=== PATIENT | female | born 1960 | race Caucasian/White ===

== ENCOUNTER 2017-12-25 12:45 | Emergency (ER) | payer MEDICAID ==
[~2017-12-25] VITALS: Ht 162.6 cm; Wt 56.7 kg
--- NOTE | 2017-12-25 12:50 | NUR ---
PRESENTS TO ER C/O PAIN AND SWELLING TO THE BACK OF THE BASE OF THE NECK X 1 WEEK. DENIES TRAUMA/INJURY. A/OX 4. BREATHING EVEN AND UNLABORED. NO SOB, NAD, VITALS STABLE. SAFETY AND COMFORT MEASURES IN PLACE. AWAITING MD ORDERS.
--- NOTE | 2017-12-25 13:41 | NUR ---
PATIENT TAKEN TO RADIOLOGY VIA WHEELCHAIR.
--- NOTE | 2017-12-25 13:51 | NUR ---
PATIENT RETURNED FROM CT IN STABLE CONDITION.
[2017-12-25] MEDS ORDERED: KETOROLAC TROMETHAMINE INJ 60 MG/2 ML VIAL IM STA (14:19)
[2017-12-25] MEDS ORDERED: KETOROLAC TROMETHAMINE INJ 30 MG/ML VIAL ONE (14:23)
--- NOTE | 2017-12-25 15:05 | NUR ---
US TECH AT BEDSIDE.
[2017-12-25 16:01] VITALS: BP 145/82
--- NOTE | 2017-12-25 16:03 | NUR ---
Patient discharged to home in stable condition. Written and verbal after care instructions given. Patient verbalizes understanding of instruction.
== END 2017-12-25 16:01 | disposition home or self-care (01) ==
LOC: ER 12:51
DX: S13.9XXA Sprain of joints and ligaments of unspecified parts of neck, initial encounter (principal); X58.XXXA Exposure to other specified factors, initial encounter; Y93.89 Activity, other specified; Y92.89 Other specified places as the place of occurrence of the external cause; Y99.8 Other external cause status
CPT/HCPCS: 72040; 76882; 96372; 99284; A4606; J1885; Z7610

== ENCOUNTER 2018-12-25 16:04 | Emergency (ER) | payer MEDICAID, OTHER ==
[~2018-12-25] VITALS: Ht 152.4 cm; Wt 59.9 kg
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
--- NOTE | 2018-12-25 16:33 | NUR ---
DR OSULLIVAN AT BEDSIDE FOR EVAL.
--- NOTE | 2018-12-25 16:45 | NUR ---
PT TO RADIOLOGY FOR CHEST CT SCAN VIA [facility].
--- NOTE | 2018-12-25 17:53 | NUR ---
Patient discharged to home in stable condition. Written and verbal after care instructions given. Patient verbalizes understanding of instruction.
[2018-12-25 17:54] VITALS: BP 136/77
== END 2018-12-25 17:56 | disposition home or self-care (01) ==
LOC: ER 16:11
DX: S20.212A Contusion of left front wall of thorax, initial encounter (principal); S20.211A Contusion of right front wall of thorax, initial encounter; W18.09XA Striking against other object with subsequent fall, initial encounter; Y93.K1 Activity, walking an animal; Y92.89 Other specified places as the place of occurrence of the external cause; Y99.8 Other external cause status
CPT/HCPCS: 71250-TC

== ENCOUNTER 2019-09-02 14:49 | Emergency (ER) | payer OTHER ==
[~2019-09-02] VITALS: Ht 162.6 cm; Wt 63.5 kg
[2019-09-02 14:55] VITALS: BP 152/94
== END 2019-09-02 17:28 | disposition home or self-care (01) ==
LOC: ER 14:50
DX: M79.671 Pain in right foot (principal); Z60.2 Problems related to living alone; W22.8XXA Striking against or struck by other objects, initial encounter; Y93.89 Activity, other specified; Y92.89 Other specified places as the place of occurrence of the external cause; Y99.8 Other external cause status
CPT/HCPCS: 73630-TC

== ENCOUNTER 2020-09-13 17:38 | Emergency (ER) | payer OTHER ==
[~2020-09-13] VITALS: Ht 162.6 cm; Wt 59.0 kg
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
[2020-09-13 18:29] LABS: CALCIUM, SERUM 9.3 mg/dL (8.5-10.1); CREATININE 1.1 mg/dL (0.6-1.3); POTASSIUM 4.2 mmol/L (3.5-5.1)
--- NOTE | 2020-09-13 19:11 | NUR ---
Patient discharged to home in stable condition. Written and verbal after care instructions given. Patient verbalizes understanding of instruction. Pt ambulatory with a steady gait
[2020-09-13 19:12] VITALS: BP 138/89
== END 2020-09-13 19:19 | disposition home or self-care (01) ==
LOC: ER 17:51
DX: G89.29 Other chronic pain (principal); R20.0 Anesthesia of skin; Z88.6 Allergy status to analgesic agent; Z88.1 Allergy status to other antibiotic agents
CPT/HCPCS: 36415; 71045-TC; 80048-TC

== ENCOUNTER → 2020-10-09 | Emergency (ER) | payer OTHER ==
[~2020-10-09] VITALS: Ht 162.6 cm; Wt 65.8 kg
[~2020-10-09] MED LIST: CEPH500C2 PO; HYDROCODONE/APAP 5/325MG TABLET ONE; HYDROCODONE/APAP 5/325MG TABLET PO ONE; LIDOCAINE 0.5% HCL 50 ML VIAL ONE; LIDOCAINE HCL/MPF 1% 30 ML VIAL IJ ONE; TDAP [DIPH/PERTUSSIS/TET] 0.5 ML VIAL IM ONE
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
[2020-10-09 18:31] VITALS: BP 132/85
--- NOTE | 2020-10-09 18:33 | NUR ---
Patient alert and oriented x 4. Patient discharged to home in stable condition. Written and verbal after care instructions given. Patient verbalizes understanding of instruction. Patient left the hospital in stable condition.
--- NOTE | 2020-10-09 18:39 | NUR ---
Patient discharged to home in stable condition. Written and verbal after care instructions given. Patient verbalizes understanding of instruction. The patient leaving the hospital in stable condition.
== END | disposition home or self-care (01) ==
LOC: ER 17:20
DX: S60.351A Superficial foreign body of right thumb, initial encounter (principal); Z88.1 Allergy status to other antibiotic agents; Z88.6 Allergy status to analgesic agent; W45.8XXA Other foreign body or object entering through skin, initial encounter; Y93.E8 Activity, other personal hygiene; Y92.098 Other place in other non-institutional residence as the place of occurrence of the external cause; Y99.8 Other external cause status
CPT/HCPCS: 10120; 90471; 90715; 99284; J3490

== ENCOUNTER 2020-11-26 08:55 | Emergency (ER) | payer OTHER ==
[~2020-11-26] VITALS: Ht 162.6 cm; Wt 63.5 kg
[~2020-11-26 08:55] MED LIST changes: -HYDROCODONE/APAP 5/325MG TABLET ONE; -HYDROCODONE/APAP 5/325MG TABLET PO ONE; -LIDOCAINE 0.5% HCL 50 ML VIAL ONE; -LIDOCAINE HCL/MPF 1% 30 ML VIAL IJ ONE; -TDAP [DIPH/PERTUSSIS/TET] 0.5 ML VIAL IM ONE
--- NOTE | 2020-11-26 09:30 | NUR ---
FROM HOME BIB HER FOR C/O RIGHT LOWER JAWLINE SWELLING AND RATES PAIN 10/10. NO BLEEDING IN MOUTH NOTED. WILL CONTINUE TO MONITOR THE PATIENT.
[2020-11-26] MEDS ORDERED: OXYC15TA2 PO ×2 (10:26→10:27)
[2020-11-26] MEDS ORDERED: SULF1TAB48 PO (10:26)
[2020-11-26] MEDS ORDERED: CLIN300C12 PO (10:26)
[2020-11-26] MEDS ORDERED: CLINDAMYCIN 900 MG/6 ML VIAL IM ONE (10:30)
[2020-11-26] MEDS ORDERED: KETOROLAC TROMETHAMINE INJ 60 MG/2 ML VIAL IM ONE (10:30)
[2020-11-26] MEDS ORDERED: HYDROMORPHONE 1 MG/1 ML DISP.SYRIN IM ONE (10:30)
[2020-11-26] MEDS ORDERED: KETOROLAC TROMETHAMINE INJ 30 MG/ML VIAL ONE (10:56)
[2020-11-26] MEDS ORDERED: CLINDAMYCIN 900 MG/6 ML VIAL ONE (10:56)
[2020-11-26] MEDS ORDERED: HYDROMORPHONE 1 MG/1 ML DISP.SYRIN ONE (10:57)
--- NOTE | 2020-11-26 11:05 | NUR ---
Patient discharged to home in stable condition. Written and verbal after care instructions given. Patient verbalizes understanding of instruction. The patient left ER in stable condition.
[2020-11-26 11:06] VITALS: BP 141/98
== END 2020-11-26 11:07 | disposition home or self-care (01) ==
LOC: ER 08:59
DX: K04.7 Periapical abscess without sinus (principal); Z88.1 Allergy status to other antibiotic agents; Z88.6 Allergy status to analgesic agent; Z79.899 Other long term (current) drug therapy
CPT/HCPCS: 96372 ×2; 99284; J1170; J1885; J3490

== ENCOUNTER 2020-12-06 15:42 | Emergency (ER) | payer OTHER ==
[~2020-12-06] VITALS: Ht 162.6 cm; Wt 61.2 kg
[~2020-12-06 15:42] MED LIST changes: +CLIN300C12 PO; +OXYC15TA2 PO; +SULF1TAB48 PO
[2020-12-06] MEDS ORDERED: KETOROLAC TROMETHAMINE INJ 60 MG/2 ML VIAL IM ONE (17:00)
[2020-12-06] MEDS ORDERED: LORAZEPAM 1 MG TABLET PO ONE (17:00)
[2020-12-06] MEDS ORDERED: LORAZEPAM 1 MG TABLET ONE (17:02)
[2020-12-06] MEDS ORDERED: KETOROLAC TROMETHAMINE INJ 30 MG/ML VIAL ONE (17:02)
--- NOTE | 2020-12-06 17:09 | NUR ---
scheduled pain medicatoon administered , x-ray for test in 15 mins.
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
[2020-12-06] MEDS ORDERED: NAPR-1164 PO (19:28)
--- NOTE | 2020-12-06 19:45 | NUR ---
Patient discharged to home in stable condition. left without ACI
[2020-12-06 19:46] VITALS: BP 121/70
== END 2020-12-06 19:46 | disposition home or self-care (01) ==
LOC: ER 15:42
DX: S60.051A Contusion of right little finger without damage to nail, initial encounter (principal); S40.011A Contusion of right shoulder, initial encounter; S50.01XA Contusion of right elbow, initial encounter; S00.83XA Contusion of other part of head, initial encounter; S00.03XA Contusion of scalp, initial encounter; M54.2 Cervicalgia; G56.21 Lesion of ulnar nerve, right upper limb; G57.71 Causalgia of right lower limb; F11.20 Opioid dependence, uncomplicated; J98.11 Atelectasis; F10.10 Alcohol abuse, uncomplicated; F17.200 Nicotine dependence, unspecified, uncomplicated; Y90.9 Presence of alcohol in blood, level not specified; Z79.899 Other long term (current) drug therapy; Z59.0 Homelessness; Z88.1 Allergy status to other antibiotic agents; Z88.5 Allergy status to narcotic agent; Y04.8XXA Assault by other bodily force, initial encounter; Y93.89 Activity, other specified; Y92.89 Other specified places as the place of occurrence of the external cause; Y99.8 Other external cause status
CPT/HCPCS: 71045; 72050; 72125; 73080; 73130; 96372; 99284; J1885

== ENCOUNTER 2020-12-30 15:19 | Emergency (ER) | payer OTHER ==
[~2020-12-30] VITALS: Ht 160 cm; Wt 74.4 kg
[~2020-12-30 15:19] MED LIST changes: +NAPR-1164 PO
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
[2020-12-30] MEDS ORDERED: KETOROLAC TROMETHAMINE 15 MG/ML VIAL ONE (16:04)
[2020-12-30] MEDS: KETOROLAC TROMETHAMINE INJ 30 MG/ML VIAL IV ONE (16:15)
[2020-12-30 16:25] LABS: BASOPHILS % (AUTO) 0.6 % (0.0-2.0); EOSINOPHILS % (AUTO) 0.4 % (0.0-6.0); HEMATOCRIT 36 % (33-45); HEMOGLOBIN 11.8 g/dL (11.5-14.8); LYMPHOCYTES # (AUTO) 1.3 /CMM (0.8-4.8); LYMPHOCYTES % (AUTO) 20.8 % (20.0-44.0); MEAN CORPUSCULAR HGB CONC 33 g/dl (31.0-36.0); MEAN CORPUSCULAR VOLUME 97 fL (82-100); MONOCYTES # (AUTO) 0.4 /CMM (0.1-1.30); MONOCYTES % (AUTO) 6.2 % (2.0-12.0); NEUTROPHILS # (AUTO) 4.6 /CMM (1.8-8.9); PLATELET COUNT (AUTO) 321 /CMM (150-450); WHITE BLOOD COUNT (AUTO) 6.4 K/uL (4.3-11.0)
[2020-12-30 16:33] LABS: ALCOHOL, BLOOD < 3 mg/dL (0-0); CALCIUM, SERUM 9.3 mg/dL (8.5-10.1); CARBON DIOXIDE 26 mmol/L (21-32); CHLORIDE 105 mmol/L (98-107); CREATININE 0.8 mg/dL (0.6-1.3); GLUCOSE 124 mg/dL (74-106); POTASSIUM 4.3 mmol/L (3.5-5.1); SODIUM SERUM 141 mmol/L (136-145); UREA NITROGEN, BLOOD 11 mg/dL (7-18)
[2020-12-30] MEDS ORDERED: NAPR-1192 PO (17:22)
--- NOTE | 2020-12-30 18:01 | NUR ---
The patient alert and oriented x4. Patient discharged to home in stable condition. Written and verbal after care instructions given. Patient verbalized understanding but refused to sign discharge papers.
[2020-12-30 18:02] VITALS: BP 131/88
== END 2020-12-30 17:51 | disposition home or self-care (01) ==
LOC: ER 15:21
DX: S93.491A Sprain of other ligament of right ankle, initial encounter (principal); M25.521 Pain in right elbow; Z88.6 Allergy status to analgesic agent; Z88.1 Allergy status to other antibiotic agents; Z79.899 Other long term (current) drug therapy; Y08.89XA Assault by other specified means, initial encounter; Y93.89 Activity, other specified; Y92.89 Other specified places as the place of occurrence of the external cause; Y99.8 Other external cause status
CPT/HCPCS: 36415; 71045; 73080; 73610; 73630; 80048; 80320; 85025; 96374; 99284; J1885; G0480

== ENCOUNTER 2021-01-20 14:54 | Emergency (ER) | payer OTHER ==
[~2021-01-20] VITALS: Ht 162.6 cm; Wt 59.0 kg
[~2021-01-20 14:54] MED LIST changes: +NAPR-1192 PO
--- NOTE | 2021-01-20 15:06 | NUR ---
patient came in to the er c/o right hand pain. On room air, breathing evenly and unlabored. Kept comfortable, will continue to monitor accordingly.
--- NOTE | 2021-01-20 16:36 | NUR ---
Patient discharged to home in stable condition. Written and verbal after care instructions given. Patient verbalizes understanding of instruction.
[2021-01-20 16:37] VITALS: BP 134/76
== END 2021-01-20 16:37 | disposition home or self-care (01) ==
LOC: ER 14:58
DX: M79.641 Pain in right hand (principal); Z88.1 Allergy status to other antibiotic agents; Z88.6 Allergy status to analgesic agent; Z79.899 Other long term (current) drug therapy; W22.8XXA Striking against or struck by other objects, initial encounter; Y93.89 Activity, other specified; Y92.89 Other specified places as the place of occurrence of the external cause; Y99.8 Other external cause status
CPT/HCPCS: 73130-TC

== ENCOUNTER 2021-03-16 12:32 | Emergency (ER) | payer OTHER ==
[~2021-03-16] VITALS: Ht 162.6 cm; Wt 61.2 kg
[2021-03-16 13:00] VITALS: BP 134/80
--- NOTE | 2021-03-16 13:16 | NUR ---
The patient bibs stating"I fell down on uneven surface couple days ago. Knee abrasion/bruise". Rates nemo knee pain 2. Will continue to monitor the patient.
[2021-03-16] MEDS ORDERED: ACETAMINOPHEN ES 500 MG TABLET PO ONE (13:30)
[2021-03-16] MEDS ORDERED: IV NS 0.9% 1,000 ML BAG IV ONE (13:30)
[2021-03-16] MEDS ORDERED: ACETAMINOPHEN ES 500 MG TABLET ONE (13:39)
[2021-03-16 13:44] LABS: BASOPHILS % (AUTO) 0.7 % (0.0-2.0); EOSINOPHILS % (AUTO) 1.6 % (0.0-6.0); HEMATOCRIT 37 % (33-45); HEMOGLOBIN 12.2 g/dL (11.5-14.8); LYMPHOCYTES # (AUTO) 1.9 K/uL (0.8-4.8); LYMPHOCYTES % (AUTO) 29.5 % (20.0-44.0); MEAN CORPUSCULAR HGB CONC 33 g/dl (31.0-36.0); MEAN CORPUSCULAR VOLUME 97 fL (82-100); MONOCYTES # (AUTO) 0.6 K/uL (0.1-1.30); MONOCYTES % (AUTO) 9.8 % (2.0-12.0); NEUTROPHILS # (AUTO) 3.8 K/uL (1.8-8.9); NEUTROPHILS % (AUTO) 58.4 % (43.0-81.0); PLATELET COUNT (AUTO) 347 K/uL (150-450); RED BLOOD CELL COUNT(AUTO) 3.76 MIL/uL (4.0-5.2); WHITE BLOOD COUNT (AUTO) 6.6 K/uL (4.3-11.0)
[2021-03-16 13:58] LABS: CALCIUM, SERUM 8.8 mg/dL (8.5-10.1); CARBON DIOXIDE 26 mmol/L (21-32); CHLORIDE 106 mmol/L (98-107); GLUCOSE 103 mg/dL (74-106); POTASSIUM 4.3 mmol/L (3.5-5.1); SODIUM SERUM 140 mmol/L (136-145); UREA NITROGEN, BLOOD 13 mg/dL (7-18)
[2021-03-16] MEDS ORDERED: HYDROCODONE/APAP 5/325MG TABLET PO ONE (14:30)
[2021-03-16] MEDS ORDERED: DIAZEPAM 5 MG TABLET PO ONE (14:30)
[2021-03-16] MEDS ORDERED: DIAZEPAM 5 MG TABLET ONE (14:45)
[2021-03-16] MEDS ORDERED: HYDROCODONE/APAP 5/325MG TABLET ONE (14:45)
[2021-03-16] MEDS ORDERED: NALO4SPR NS (15:00)
[2021-03-16] MEDS ORDERED: HYDR-3972 PO (15:00)
[2021-03-16] MEDS ORDERED: DIAZ5TAB PO (15:00)
--- NOTE | 2021-03-16 15:20 | NUR ---
No obvious distress. MD Dr Lynn in to update pt w/plan of care and results - Patient discharged to home in stable condition. Written and verbal after care instructions given. Patient verbalizes understanding of instruction.
--- NOTE | 2021-03-16 15:21 | NUR ---
Patient discharged to home in stable condition. Written and verbal after care instructions given. Patient verbalizes understanding of instruction.
== END 2021-03-16 15:22 | disposition home or self-care (01) ==
LOC: ER 13:54
DX: S13.8XXA Sprain of joints and ligaments of other parts of neck, initial encounter (principal); G89.29 Other chronic pain; R51.9 Headache, unspecified; F10.10 Alcohol abuse, uncomplicated; F17.200 Nicotine dependence, unspecified, uncomplicated; Y90.9 Presence of alcohol in blood, level not specified; Z88.1 Allergy status to other antibiotic agents; Z88.5 Allergy status to narcotic agent; Z79.899 Other long term (current) drug therapy; W01.198A Fall on same level from slipping, tripping and stumbling with subsequent striking against other object, initial encounter; Y93.89 Activity, other specified; Y92.89 Other specified places as the place of occurrence of the external cause; Y99.8 Other external cause status
CPT/HCPCS: 36415; 70450; 71045; 72125; 80048; 82962; 84484; 85025; 93005; 96360; 99285; J7030

== ENCOUNTER 2021-07-06 17:42 | Emergency (ER) | payer OTHER ==
[~2021-07-06] VITALS: Ht 162.6 cm; Wt 65.8 kg
[~2021-07-06 17:42] MED LIST changes: +DIAZ5TAB PO; +HYDR-3972 PO; +NALO4SPR NS
--- NOTE | 2021-07-06 17:48 | NUR ---
TO ER BED 16, [id number], C/O VAGINAL BLEEDING "BRIGHT RED" X 7 HOURS. AAOX3, BREATHING EVEN AND NON LABORED, PROVIDED BLANKET FOR COMFORT, AWAITING MD MCKENNA
--- NOTE | 2021-07-06 18:23 | NUR ---
US AT BEDSIDE
[2021-07-06] MEDS: LORAZEPAM 1 MG TABLET PO ONE (18:32)
[2021-07-06] MEDS ORDERED: LORAZEPAM 0.5 MG TABLET ONE (18:32)
--- NOTE | 2021-07-06 18:32 | NUR ---
RECEIVED AN ORDER FROM DR ZIMMER: ATIVAN 0.5 MG PO ONCE. THE ORDER IS READ BACK, VERIFIED. NOTED AND CARRIED OUT.
[2021-07-06 19:04] LABS: BASOPHILS # (AUTO) 0.3 K/uL (0.0-0.2); BASOPHILS % (AUTO) 2.9 % (0.0-2.0); EOSINOPHILS % (AUTO) 2.1 % (0.0-6.0); HEMATOCRIT 38 % (33-45); HEMOGLOBIN 12.6 g/dL (11.5-14.8); LYMPHOCYTES # (AUTO) 1.6 K/uL (0.8-4.8); LYMPHOCYTES % (AUTO) 14.1 % (20.0-44.0); MEAN CORPUSCULAR HGB CONC 33 g/dl (31.0-36.0); MEAN CORPUSCULAR VOLUME 98 fL (82-100); MONOCYTES # (AUTO) 0.6 K/uL (0.1-1.30); MONOCYTES % (AUTO) 5.3 % (2.0-12.0); NEUTROPHILS # (AUTO) 8.7 K/uL (1.8-8.9); NEUTROPHILS % (AUTO) 75.6 % (43.0-81.0); PLATELET COUNT (AUTO) 336 K/uL (150-450); RED BLOOD CELL COUNT(AUTO) 3.86 MIL/uL (4.0-5.2); WHITE BLOOD COUNT (AUTO) 11.5 K/uL (4.3-11.0)
[2021-07-06 19:17] LABS: CALCIUM, SERUM 8.9 mg/dL (8.5-10.1); CREATININE 0.9 mg/dL (0.6-1.3); POTASSIUM 3.8 mmol/L (3.5-5.1)
[2021-07-06 19:22] LABS: ALBUMIN 3.8 g/dL (3.4-5.0); BILIRUBIN,DIRECT 0.1 mg/dL (0.0-0.2); BILIRUBIN,TOTAL 0.3 mg/dL (0.2-1.0); TOTAL PROTEIN, SERUM 7.6 g/dL (6.4-8.2)
[2021-07-06 19:30] LABS: BILIRUBIN,URINE Negative (NEGATIVE); COLOR,URINE YELLOW (YELLOW); LEUKOCYTE ESTERASE ,URINE Small (NEGATIVE); NITRITE, URINE Negative (NEGATIVE); PROTEIN,URINE 30 mg/dl (NEGATIVE); UGLUCOSE Negative (NEGATIVE); UROBILINOGEN,URINE 0.2 EU/dL (0.2)
[2021-07-06 19:33] LABS: RBC,URINE 51-80 /HPF (0-2)
[2021-07-06 19:34] LABS: BACTERIA,URINE 3+ /HPF (None Seen); MUCUS,URINE Few /LPF (None Seen); SQUAMOUS EPITHELIAL CELL,UR Few /HPF (None Seen)
--- NOTE | 2021-07-06 20:57 | NUR ---
PATIENT C/O LOWER ABDOMINAL PAIN. DR ZIMMER WAS NOTIFIED. ORDER RECEIVED FOR TORADOL 15 MG IM ONCE. ORDER READ BACK AND VERIFIED WITH .
[2021-07-06] MEDS ORDERED: KETOROLAC TROMETHAMINE 15 MG/ML VIAL ONE (21:00)
[2021-07-06] MEDS: KETOROLAC TROMETHAMINE INJ 30 MG/ML VIAL IM ONE (21:04)
[2021-07-06] MEDS ORDERED: CEPH500C2 PO (21:48)
--- NOTE | 2021-07-06 22:31 | NUR ---
Patient discharged to home in stable condition. Written and verbal after care instructions given. Patient verbalizes understanding of instruction. Pt ambulatory with a steady gait
[2021-07-06 23:28] VITALS: BP 132/87
== END 2021-07-06 22:32 | disposition home or self-care (01) ==
LOC: ER 17:48
DX: N30.01 Acute cystitis with hematuria (principal); N93.9 Abnormal uterine and vaginal bleeding, unspecified; F12.90 Cannabis use, unspecified, uncomplicated; Z88.6 Allergy status to analgesic agent; Z88.1 Allergy status to other antibiotic agents; Z79.899 Other long term (current) drug therapy
CPT/HCPCS: 36415; 74176; 76856; 80048; 80076; 81001; 85025; 87077; 87086; 87186; 96372; 99284; J1885

== ENCOUNTER 2022-05-13 10:47 | Emergency (ER) | payer OTHER ==
[~2022-05-13] VITALS: Ht 162.6 cm; Wt 55.8 kg
[2022-05-13] MEDS ORDERED: IV NS 0.9% 1,000 ML BAG IV ONE (11:30)
[2022-05-13] MEDS ORDERED: METOCLOPRAMIDE HCL 10 MG/2 ML VIAL IV ONE (11:30)
[2022-05-13] MEDS ORDERED: diphenhydrAMINE HCL 50 MG/ML VIAL IV ONE (11:30)
[2022-05-13] MEDS ORDERED: KETOROLAC TROMETHAMINE INJ 30 MG/ML VIAL IV ONE (11:30)
[2022-05-13] MEDS ORDERED: KETOROLAC TROMETHAMINE 15 MG/ML VIAL ONE (11:36)
[2022-05-13] MEDS ORDERED: diphenhydrAMINE HCL ELIX 25 MG/10 ML UDC ONE (11:36)
[2022-05-13] MEDS ORDERED: METOCLOPRAMIDE HCL 10 MG/2 ML VIAL ONE (11:36)
[2022-05-13] MEDS ORDERED: IBUP-1955 PO (12:34)
[2022-05-13 13:06] VITALS: BP 138/82
== END 2022-05-13 13:07 | disposition home or self-care (01) ==
LOC: ER 10:47
DX: R51.9 Headache, unspecified (principal); I10 Essential (primary) hypertension; F17.200 Nicotine dependence, unspecified, uncomplicated; Z88.8 Allergy status to other drugs, medicaments and biological substances; Z79.899 Other long term (current) drug therapy
CPT/HCPCS: 99284; 96374; 70450; 96375; 96361; Q0163; J2765; J7030; J1885

== ENCOUNTER 2022-06-18 13:15 | Emergency (ER) | payer OTHER ==
[~2022-06-18] VITALS: Ht 162.6 cm; Wt 88.9 kg
[~2022-06-18 13:15] MED LIST changes: +IBUP-1955 PO
--- NOTE | 2022-06-18 13:30 | NUR ---
C/O COUGH X 2 WEEKS, UNRELIEVED W/ OTC MEDICATION
[2022-06-18] MEDS ORDERED: HYDROCODONE/APAP 5/325MG TABLET ONE (14:32)
[2022-06-18] MEDS ORDERED: predniSONE 20 MG TABLET ONE (14:32)
[2022-06-18] MEDS ORDERED: DIAZEPAM 5 MG TABLET ONE (14:32)
[2022-06-18] MEDS: DIAZEPAM 5 MG TABLET PO ONE (14:35)
[2022-06-18] MEDS: HYDROCODONE/APAP 5/325MG TABLET PO ONE (14:35)
[2022-06-18] MEDS: predniSONE 20 MG TABLET PO ONE (14:35)
[2022-06-18] MEDS: ALBUTEROL FS 2.5 MG/3 ML VIAL.NEB CONTNEB ONE (14:39)
[2022-06-18] MEDS ORDERED: ALBUTEROL FS 2.5 MG/3 ML VIAL.NEB ONE (14:41)
--- NOTE | 2022-06-18 14:45 | NUR ---
RT AT BEDSIDE FOR BREATHING TX
[2022-06-18] MEDS ORDERED: DIAZ5TAB PO (15:40)
[2022-06-18] MEDS ORDERED: ALBU8.5H8 INH (15:40)
[2022-06-18] MEDS ORDERED: HYDR-3972 PO (15:40)
[2022-06-18] MEDS ORDERED: PRED20TA PO (15:40)
[2022-06-18] MEDS ORDERED: AZIT250T PO (15:40)
--- NOTE | 2022-06-18 16:29 | NUR ---
Patient discharged to home in stable condition. Written and verbal after care instructions given. Patient verbalizes understanding of instruction.
[2022-06-18 16:32] VITALS: BP 145/95
== END 2022-06-18 16:29 | disposition home or self-care (01) ==
LOC: ER 13:16
DX: J45.909 Unspecified asthma, uncomplicated (principal); I10 Essential (primary) hypertension; F17.200 Nicotine dependence, unspecified, uncomplicated; Z88.1 Allergy status to other antibiotic agents; Z88.6 Allergy status to analgesic agent; Z79.899 Other long term (current) drug therapy
CPT/HCPCS: 99284; 71045; 93005 ×2; 94640; J7512

== ENCOUNTER 2022-09-25 19:21 | Emergency (ER) | payer MEDICAID, OTHER ==
[~2022-09-25] VITALS: Ht 162.6 cm; Wt 62.6 kg
[~2022-09-25 19:21] MED LIST changes: +ALBU8.5H8 INH; +AZIT250T PO; +PRED20TA PO
--- NOTE | 2022-09-25 20:15 | NUR ---
BIBS C/O "SEVERE PAIN URINATING", WITH LOWER BACK AND ABDOMINAL PAIN X1 DAY. PATIENT IS AAOX4. ABLE TO MAKE NEEDS KNOWN. AMBULATING. PLACED COMFORTABLY IN BED. VITALS CHECKED.
[2022-09-25] MEDS ORDERED: KETOROLAC TROMETHAMINE INJ 60 MG/2 ML VIAL IM ONE (20:30)
[2022-09-25] MEDS ORDERED: KETOROLAC TROMETHAMINE INJ 30 MG/ML VIAL ONE (20:36)
--- NOTE | 2022-09-25 20:44 | NUR ---
URINE COLLECTED AND SENT TO LAB
[2022-09-25 20:48] LABS: BILIRUBIN,URINE NEGATIVE (NEGATIVE); COLOR,URINE YELLOW (YELLOW); LEUKOCYTE ESTERASE ,URINE 1+ (NEGATIVE); NITRITE, URINE NEGATIVE (NEGATIVE); PROTEIN,URINE NEGATIVE (NEGATIVE); UGLUCOSE NEGATIVE (NEGATIVE); UROBILINOGEN,URINE 0.2 EU/dL (0.2)
[2022-09-25 21:00] LABS: BACTERIA,URINE 1+ /HPF (None Seen); RBC,URINE 21-50 /HPF (0-2); SQUAMOUS EPITHELIAL CELL,UR 0-2 /HPF (None Seen)
[2022-09-25] MEDS ORDERED: IV NS 0.9% 1,000 ML BAG IV ONE (21:30)
[2022-09-25] MEDS ORDERED: CEFTRIAXONE 1 G VIAL IM ONE (21:30)
--- NOTE | 2022-09-25 21:30 | NUR ---
BROUGHT TO CT DEPT
[2022-09-25] MEDS ORDERED: CEFTRIAXONE 1GM BAG (ER ONLY) 50 ML IV ONE (21:40)
[2022-09-25 22:04] LABS: BASOPHILS % (AUTO) 0.5 % (0.0-2.0); EOSINOPHILS % (AUTO) 1.5 % (0.0-6.0); HEMATOCRIT 36 % (33-45); HEMOGLOBIN 11.9 g/dL (11.5-14.8); LYMPHOCYTES # (AUTO) 2.5 K/uL (0.8-4.8); LYMPHOCYTES % (AUTO) 31.2 % (20.0-44.0); MEAN CORPUSCULAR HGB CONC 33 g/dl (31.0-36.0); MEAN CORPUSCULAR VOLUME 98 fL (82-100); MONOCYTES # (AUTO) 0.6 K/uL (0.1-1.30); MONOCYTES % (AUTO) 8.1 % (2.0-12.0); NEUTROPHILS # (AUTO) 4.6 K/uL (1.8-8.9); NEUTROPHILS % (AUTO) 58.7 % (43.0-81.0); PLATELET COUNT (AUTO) 335 K/uL (150-450); RED BLOOD CELL COUNT(AUTO) 3.66 MIL/uL (4.0-5.2); WHITE BLOOD COUNT (AUTO) 7.9 K/uL (4.3-11.0)
[2022-09-25 22:14] LABS: CREATININE 0.9 mg/dL (0.6-1.3); POTASSIUM 4.1 mmol/L (3.5-5.1)
[2022-09-25 22:28] LABS: ALBUMIN 3.6 g/dL (3.4-5.0); BILIRUBIN,DIRECT 0.1 mg/dL (0.0-0.2); BILIRUBIN,TOTAL 0.3 mg/dL (0.2-1.0); TOTAL PROTEIN, SERUM 7.2 g/dL (6.4-8.2)
[2022-09-25] MEDS ORDERED: CIPR-262 PO (23:01)
[2022-09-25] MEDS ORDERED: NAPR500T6 PO (23:01)
[2022-09-25] MEDS ORDERED: TAMS-12 GT (23:01)
[2022-09-25] MEDS ORDERED: HYDROCODONE/APAP 5/325MG TABLET ONE (23:11)
[2022-09-25] MEDS ORDERED: HYDR-4209 PO (23:11)
[2022-09-25] MEDS: HYDROCODONE/APAP 5/325MG TABLET PO ONE ×2 (23:29→23:32)
[2022-09-25 23:34] VITALS: BP 109/83
== END 2022-09-25 23:35 | disposition home or self-care (01) ==
LOC: ER 19:22
DX: N20.0 Calculus of kidney (principal); I10 Essential (primary) hypertension; F17.200 Nicotine dependence, unspecified, uncomplicated; Z88.8 Allergy status to other drugs, medicaments and biological substances; Z79.899 Other long term (current) drug therapy
CPT/HCPCS: 99285; 74176; 96365; 85025; 80048; 87086; 83690; 80076; 81001; 36415; 96372; J1885; J7030; A4223; J0696

== ENCOUNTER 2022-10-02 13:22 | Emergency (ER) | payer MEDICAID ==
[~2022-10-02] VITALS: Ht 162.6 cm; Wt 62.1 kg
[~2022-10-02 13:22] MED LIST changes: +CIPR-262 PO; +HYDR-4209 PO; +NAPR500T6 PO; +TAMS-12 GT
--- NOTE | 2022-10-02 13:45 | NUR ---
C/O CHEST PAIN AND DIZZINESS SINCE YESTERDAY
[2022-10-02 14:20] LABS: BASOPHILS % (AUTO) 0.4 % (0.0-2.0); EOSINOPHILS % (AUTO) 0.3 % (0.0-6.0); HEMATOCRIT 40 % (33-45); LYMPHOCYTES # (AUTO) 1.6 K/uL (0.8-4.8); LYMPHOCYTES % (AUTO) 21.7 % (20.0-44.0); MEAN CORPUSCULAR HGB CONC 33 g/dl (31.0-36.0); MEAN CORPUSCULAR VOLUME 98 fL (82-100); MONOCYTES # (AUTO) 0.6 K/uL (0.1-1.30); MONOCYTES % (AUTO) 8.5 % (2.0-12.0); NEUTROPHILS # (AUTO) 5.1 K/uL (1.8-8.9); NEUTROPHILS % (AUTO) 69.1 % (43.0-81.0); PLATELET COUNT (AUTO) 362 K/uL (150-450); RED BLOOD CELL COUNT(AUTO) 4.08 MIL/uL (4.0-5.2); WHITE BLOOD COUNT (AUTO) 7.4 K/uL (4.3-11.0)
[2022-10-02 14:27] LABS: CALCIUM, SERUM 9.2 mg/dL (8.5-10.1); CARBON DIOXIDE 26 mmol/L (21-32); CHLORIDE 108 mmol/L (98-107); GLUCOSE 116 mg/dL (74-106); POTASSIUM 4.5 mmol/L (3.5-5.1); SODIUM SERUM 141 mmol/L (136-145); UREA NITROGEN, BLOOD 14 mg/dL (7-18)
--- NOTE | 2022-10-02 14:45 | NUR ---
ESTABLISHED IV LINE 20 G LEFT AC
--- NOTE | 2022-10-02 14:45 | NUR ---
COVID SWAB TAKEN
[2022-10-02] MEDS ORDERED: HYDR-3980 PO (14:54)
[2022-10-02] MEDS ORDERED: TIZA4TAB5 PO (14:54)
--- NOTE | 2022-10-02 15:53 | NUR ---
MOVE SHEET SUBMITTED.
--- NOTE | 2022-10-02 16:58 | NUR ---
BED GIVEN 326-2
[2022-10-02] MEDS ORDERED: TIZANIDINE HCL 4 MG TABLET PO ONE (17:00)
[2022-10-02] MEDS ORDERED: HYDROCODONE/APAP 10/325MG TABLET PO ONE (17:00)
[2022-10-02] MEDS ORDERED: HYDROCODONE/APAP 10/325MG TABLET ONE (17:06)
--- NOTE | 2022-10-02 17:26 | NUR ---
IV removed. Catheter intact and site benign. Pressure and 4x4 applied to site. No bleeding noted.
[2022-10-02 17:27] VITALS: BP 151/99
--- NOTE | 2022-10-02 17:27 | NUR ---
Patient discharged to home in stable condition. Written and verbal after care instructions given. Patient verbalizes understanding of instruction.
== END 2022-10-02 17:28 | disposition home or self-care (01) ==
LOC: ER 13:31
DX: R07.89 Other chest pain (principal); F17.200 Nicotine dependence, unspecified, uncomplicated; Z79.899 Other long term (current) drug therapy; Z88.1 Allergy status to other antibiotic agents; Z88.5 Allergy status to narcotic agent; Z20.822 Contact with and (suspected) exposure to COVID-19
CPT/HCPCS: 99285; 71045; 87426; 93005 ×2; 85025; 80048; 36415; 84484 ×2; C9803

== ENCOUNTER 2023-10-15 09:30 | Emergency (ER) | payer OTHER ==
[~2023-10-15] VITALS: Ht 162.6 cm; Wt 54.4 kg
[~2023-10-15 09:30] MED LIST changes: -ALBU8.5H8 INH; +AMOX-430 PO; -AZIT250T PO; -CEPH500C2 PO; -CIPR-262 PO; -CLIN300C12 PO; +DIAZ10TA PO; -HYDR-3972 PO; +HYDR-3980 PO; -IBUP-1955 PO; +MECL-159 PO; -NALO4SPR NS; -NAPR-1164 PO; -NAPR-1192 PO; -NAPR500T6 PO; +ONDA4TAB5 PO; -OXYC15TA2 PO; -PRED20TA PO; -SULF1TAB48 PO; -TAMS-12 GT; +TIZA4TAB5 PO
[2023-10-15] MEDS ORDERED: AMLO-212 PO (10:25)
[2023-10-15 10:49] VITALS: BP 159/110; TEMP 98; O2SAT 98
== END 2023-10-15 10:50 | disposition home or self-care (01) ==
LOC: ER 09:47
DX: I12.9 Hypertensive chronic kidney disease with stage 1 through stage 4 chronic kidney disease, or unspecified chronic kidney disease (principal); E11.22 Type 2 diabetes mellitus with diabetic chronic kidney disease; N18.9 Chronic kidney disease, unspecified; Z88.8 Allergy status to other drugs, medicaments and biological substances; Z79.899 Other long term (current) drug therapy